=== PATIENT | male | born 1980 | race Caucasian/White ===

== ENCOUNTER 2024-02-10 12:03 | Emergency (ER) | payer OTHER ==
[~2024-02-10] VITALS: Ht 175.2 cm; Wt 77.1 kg
[2024-02-10] MEDS ORDERED: Bacitracin Zinc 14 GM TUBE T ONE (12:50)
[2024-02-10] MEDS ORDERED: Lidocaine Hydrochloride 2% 10 ML AMP SC ONE (12:50)
[2024-02-10] MEDS ORDERED: Tdap Vaccine 0.5 ML SYR (Adult Vaccine) IM ONE (12:50)
[2024-02-10] MEDS ORDERED: LIDOCAINE HCL/EPINEPHRINE 50 ML VIAL ONE (13:26)
== END 2024-02-10 14:03 | disposition home or self-care (01) ==
LOC: ED 12:03
DX: S81.811A Laceration without foreign body, right lower leg, initial encounter (principal); Z88.0 Allergy status to penicillin; W26.8XXA Contact with other sharp object(s), not elsewhere classified, initial encounter; Y93.39 Activity, other involving climbing, rappelling and jumping off; Y92.89 Other specified places as the place of occurrence of the external cause; Y99.0 Civilian activity done for income or pay